=== PATIENT | female | born 1995 | race Caucasian/White ===

== ENCOUNTER 2020-03-06 17:58 | Outpatient (CLI) | payer OTHER ==
--- NOTE | 2020-03-07 15:16 | Ultrasound Report ---
PROCEDURE: OB Detailed Eval INDICATIONS: SUPERVISION NORMAL PRENANCY OUTSIDE/PRIOR DATING DATA: Last menstrual period (LMP): 10/09/2019. LMP-based estimated date of delivery (WANDA): 07/15/2020. First dating scan (date and location): 12/12/2019. Estimated date of delivery (WANDA) from first dating scan: 07/15/2020. TECHNIQUE: Real-time scanning was performed of the fetus, with image documentation and biometric measurements. COMPARISON: None. FINDINGS: First trimester ultrasound report 12/12/2019 with no images are available for comparison. General: A single living intrauterine gestation is present. Presentation: Vertex Placenta: Placental position is anterior fundal, without previa. Amniotic fluid index: 16.4 cm, 68th percentile for gestational age. Largest pocket 4.7 cm heart rate: 149 beats per minute. Maternal cervical canal: 5.1 cm long; normal length is 2.5 cm or more. biometrics: Biparietal diameter: 5.2 cm 21 weeks 6 days Head circumference: 19.4 cm 21 weeks 4 days Abdominal circumference: 17 cm 21 weeks 6 days Femur length: 3.8 cm 22 weeks 0 days Estimated gestational age from initial scan: 21 weeks 6 days. Composite gestational age from present scan: 21 weeks 2 days Estimated weight and percentile: 461 g, 78th percentile Measurement variability in biometric dating: +/- 10 days from 12-20 weeks gestation, +/- 2 weeks from 20-30 weeks gestation, +/- 3 weeks at 30 weeks gestation or later. Anatomic survey: Neuro: Ventricles are normal at less than 10 mm. Cisterna magna is normal at 3-11 mm. Cerebellum i s normal in size and morphology. Nuchal skin fold: Normal at less than 6 mm between 14 and 20 weeks gestational age. Face: Nose and lips, facial profile are normal. Spine: No evidence for spina bifida. Heart: 4-chambered heart is present, with normal ventricular outflow tracts. Diaphragm: Diaphragm is intact. Stomach: Left-sided stomach is present. Kidneys: No hydronephrosis. Normal is less than 5 mm in 2nd trimester, less than 7 mm in 3rd trimester. Cord: 3 vessel cord has orthotopic insertion. Bladder: Normal in size. Extremities: All 4 extremities are visualized. IMPRESSION: 1. Single live intrauterine with ultrasound gestational age today of 21 weeks 2 days compar ed to 21 weeks 6 days by initial ultrasound. Ultrasound WANDA is unchanged at 07/15/2020. 2. Anatomy is within normal limits. Reviewed by: Edith Cai MD on 03/07/2020 3:15 PM PDT Approved by: Edith Cai MD on 03/07/2020 3:15 PM PDT Station ID: [id number]
== END 2020-03-06 17:59 | disposition home or self-care (01) ==
LOC: DI 17:58
PROVIDERS: ATTEND Obstetrics & Gynecology
DX: Z34.80 Encounter for supervision of other normal pregnancy, unspecified trimester (principal)
CPT/HCPCS: 76811

== ENCOUNTER 2020-03-19 16:18 | Outpatient (CLI) | payer OTHER ==
[2020-03-19 17:21] VITALS: BP 135/67
--- NOTE | 2020-03-19 17:53 | PROVIDER PROGRESS NOTE ---
- HPI Chief Complaint: Other (Patient is a 24 yo at 23+1 wga here with new onset shakiness, headache, nausea while at work. Mildly elevated BP at [place]. Hx of pre- eclampsia. Not on ASA. BMI 35. Fam Hx DM and HTN. Endorses FM. Denies LOF/VB/CTX) Current : Current EDU 07/15/20 Gestation 23 Weeks and 1 Days 3 Para 1 Vital Signs Temperature 99.3 F 03/19/20 16:51 Heart Rate 90 03/19/20 16:51 Respiratory Rate 18 03/19/20 16:51 Blood Pressure 135/67 H 03/19/20 16:51 O2 Saturation 99 03/19/20 16:51 Temperature 99.3 F 03/19/20 16:51 Heart Rate 90 03/19/20 16:51 Respiratory Rate 18 03/19/20 16:51 Blood Pressure 135/67 H 03/19/20 16:51 O2 Saturation 99 03/19/20 16:51 - Exam SEE VS. BPs wnl GEN: NAD CV: RR RESP: nl effort ABD: gravid, S&NT/ND EXT: WWP NEURO: alert and oriented PSYCH: appropriate affect POC glucose 60 - Procedures OB Procedure Performed: Other (Dopplers show FHT in 150s; previable ) Service Date of procedure: 03/19/20 - Plan Plan: 24 yo at 23+1 wga with shakiness/nausea/headache/mildly elevated BP at home now with hypoglycemia - Normal BP in triage -Hx of preeclampsia -Also has BMI of 35 -Late for optimal window for ppx but provided ASA for pre-eclampsia PPX RX sent to [facility] pharmacy Reviewed etiology of hypoglycemia in and insulin resistance -Recommend early 1H GTT with the caveat that it should be repeated at 28 weeks if normal -Reviewed keeping low carb high protein/higher fat snacks available to maintain stable blood sugars FU with OB provider tomorrow Discharged to home
== END 2020-03-19 18:04 | disposition home or self-care (01) ==
LOC: WFO 16:18 → FBP 16:19 → WFO 18:04
PROVIDERS: ATTEND Obstetrics & Gynecology
DX: O26.892 Other specified pregnancy related conditions, second trimester (principal); E16.2 Hypoglycemia, unspecified; Z3A.23 23 weeks gestation of pregnancy
CPT/HCPCS: 99213

== ENCOUNTER 2020-03-20 10:38 | Outpatient (CLI) | payer OTHER ==
[2020-03-20 12:00] LABS: HGB - HEMOGLOBIN 10.9 g/dL (12.0-16.0); MEAN CORPUSCULAR HEMOGLOBIN 30.4 pg (27.0-31.0); MEAN CORPUSCULAR HGB CONC 34.3 g/dL (32.0-36.0); MEAN CORPUSCULAR VOLUME 88.8 fL (81.0-99.0); MEAN PLATELET VOLUME 9.9 fL (7.9-10.8); RED BLOOD COUNT 3.58 10^6/uL (4.20-5.40); WHITE BLOOD COUNT 9.4 x10^3/uL (4.8-10.8)
[2020-03-20 12:12] LABS: CREATININE,URINE 22.9 mg/dL
[2020-03-20 12:17] LABS: HB2 TOTAL 11.5 g/dL; HEMOGLOBIN A1C 0.38 g/dL; HEMOGLOBIN A1C % 5.2 % (4.6-6.2)
[2020-03-20 12:24] LABS: TOTAL PROTEIN,URINE TIMED < 6 mg/dL
[2020-03-20 12:28] LABS: ALBUMIN 3.4 g/dL (3.2-5.5); BILIRUBIN,DIRECT 0.1 mg/dL (0.1-0.5); BILIRUBIN,TOTAL 0.4 mg/dL (0.2-1.0); TOTAL PROTEIN 7.1 g/dL (6.7-8.2); URIC ACID 3.3 mg/dL (2.6-7.2)
== END 2020-03-20 10:39 | disposition home or self-care (01) ==
LOC: LAB 10:38
PROVIDERS: ATTEND Obstetrics & Gynecology
DX: Z34.80 Encounter for supervision of other normal pregnancy, unspecified trimester (principal)
CPT/HCPCS: 36415; 80076; 82570; 82950; 83036; 84156; 84550; 85027; 86850

== ENCOUNTER 2020-06-01 18:57 | Outpatient (CLI) | payer OTHER ==
--- NOTE | 2020-06-02 00:49 | Ultrasound Report ---
PROCEDURE: OB F/U or Repeat INDICATIONS: GESTATIONAL DABETES, EXCESSIVE GROWTH OUTSIDE/PRIOR DATING DATA: Last menstrual period (LMP): 10/09/2019. LMP-based estimated date of delivery (WANDA): 07/15/2020. First dating scan (date and location): 12/12/2019. Estimated date of delivery (WANDA) from first dating scan: 07/15/2020. TECHNIQUE: Real-time scanning was performed of the fetus, with image documentation and biometric measurements. COMPARISON: 03/06/2020. FINDINGS: General: A single living intrauterine gestation is present. Presentation: Cephalic Placenta: Placental position is anterior fundal, without previa. Amniotic fluid index: 11.4 cm, within normal limits for gestational age. Largest pocket 4.8 cm. heart rate: 161 beats per minute. Maternal cervical canal: 4.4 cm long; normal length is 2.5 cm or more. biometrics: Biparietal diameter: 8.6 cm, 35 weeks 1 day Head circumference: 31.3 cm, 35 weeks 1 day Abdominal circumference: 31.7 cm, 35 weeks 4 days Femur length: 6.9 cm, 35 weeks 4 days Estimated gestational age from initial scan: 33 weeks 5 days. Composite gestational age from present scan: 35 weeks 3 days Estimated weight and percentile: 2696 g corresponding to the 90th percentile Measurement variability in biometric dating: +/- 10 days from 12-20 weeks gestation, +/- 2 weeks from 20-30 weeks gestation, +/- 3 weeks at 30 weeks gestation or more. IMPRESSION: 1. Single living intrauterine redemonstrated in cephalic position. 2. Estimated weight at the 90th percentile suggestive of macrosomia. Reviewed by: Mainor Macdonald MD on 06/02/2020 12:47 AM PDT Approved by: Mainor Macdonald MD on 06/02/2020 12:47 AM PDT Station ID: [id number]
== END 2020-06-01 18:58 | disposition home or self-care (01) ==
LOC: DI 18:57
PROVIDERS: ATTEND Obstetrics & Gynecology
DX: O24.419 Gestational diabetes mellitus in pregnancy, unspecified control (principal); O36.63X0 Maternal care for excessive fetal growth, third trimester, not applicable or unspecified; Z3A.33 33 weeks gestation of pregnancy
CPT/HCPCS: 76816

== ENCOUNTER 2020-06-16 13:58 | Outpatient (CLI) | payer OTHER ==
[2020-06-16 15:24] VITALS: BP 100/51
--- NOTE | 2020-06-21 12:28 | PROCEDURE REPORT ---
- HPI Diagnosis/Indication for NST: Gestational Hypertension Current EDU 07/15/20 Gestation 35 Weeks and 6 Days 1 Para 0 Vital Signs Temperature 98.1 F 06/16/20 14:45 Heart Rate 86 06/16/20 14:45 Respiratory Rate 18 06/16/20 14:45 Blood Pressure 100/51 L 06/16/20 14:45 Temperature 98.1 F 06/16/20 14:45 Heart Rate 86 06/16/20 14:45 Respiratory Rate 18 06/16/20 14:45 Blood Pressure 100/51 L 06/16/20 14:45 O2 Saturation - NST Procedure NST Procedure Start Date 06/16/20 Start Time 14:05 Stop Time 14:44 Patient States Movement Yes EFM 135 mod devonte 15x15 accels no decels TOCO: irreg - Results and Plan Findings/Impression: 25 yo at 35+6 wga with complicated by GDM here for NST Cat I tracing Cont with twice weekly NST and weekly AMOL DC to home
== END 2020-06-16 14:45 | disposition home or self-care (01) ==
LOC: WFO 13:58 → FBP 13:59 → WFO 14:45
PROVIDERS: ATTEND Obstetrics & Gynecology
DX: O24.419 Gestational diabetes mellitus in pregnancy, unspecified control (principal); Z3A.35 35 weeks gestation of pregnancy
CPT/HCPCS: 59025

== ENCOUNTER 2020-06-19 15:04 | Outpatient (CLI) | payer OTHER ==
--- NOTE | 2020-06-20 09:28 | Ultrasound Report ---
PROCEDURE: OB Limited INDICATIONS: GESTATIONAL DIABETES OUTSIDE/PRIOR DATING DATA: Last menstrual period (LMP): 10/09/2019 LMP-based estimated date of delivery (WANDA): 07/15/2020. First dating scan (date and location): 12/12/2019. Estimated date of delivery (WANDA) from first dating scan: 07/15/2020. TECHNIQUE: Real-time scanning was performed of the fetus, with image documentation. Endovaginal scanning: Not performed COMPARISON: None. FINDINGS: A single living intrauterine gestation is present. Presentation: Vertex Placenta: Placental position is anterior/fundal, without previa. Amniotic fluid index: 11.6 cm, 28th percentile. Largest pocket measures 4.4 cm heart rate: 141 beats per minutes. Estimated gestational age from initial scan: 36 weeks 2 days. Normal appearance of the chest, stomach, kidneys and urinary bladder. IMPRESSION: Single living intrauterine fetus in vertex presentation. AMOL measures 11.6 cm Reviewed by: Shayan Cody MD on 06/20/2020 9:27 AM PDT Approved by: Shayan Cody MD on 06/20/2020 9:27 AM PDT Station ID: [id number]
== END 2020-06-19 15:05 | disposition home or self-care (01) ==
LOC: DI 15:04
PROVIDERS: ATTEND Obstetrics & Gynecology
DX: O24.419 Gestational diabetes mellitus in pregnancy, unspecified control (principal); Z3A.36 36 weeks gestation of pregnancy
CPT/HCPCS: 76815

== ENCOUNTER 2020-06-19 16:10 | Outpatient (CLI) | payer OTHER ==
[2020-06-19 16:52] VITALS: BP 108/59
--- NOTE | 2020-07-13 11:17 | PROCEDURE REPORT ---
- HPI Diagnosis/Indication for NST: Gestational Hypertension Current EDU 07/15/20 Gestation 36 Weeks and 2 Days 3 Para 1 Vital Signs Temperature 98.2 F 06/19/20 16:36 Heart Rate 88 06/19/20 16:36 Respiratory Rate 17 06/19/20 16:36 Blood Pressure 108/59 L 06/19/20 16:36 O2 Saturation 99 06/19/20 16:36 Temperature 98.2 F 06/19/20 16:36 Heart Rate 88 06/19/20 16:36 Respiratory Rate 17 06/19/20 16:36 Blood Pressure 108/59 L 06/19/20 16:36 O2 Saturation 99 06/19/20 16:36 - NST Procedure NST Procedure Start Date 06/19/20 Start Time 16:15 Stop Time 16:38 Vibroacoustic Stimulation Used No Patient States Movement Yes EFM 140 mod devonte 15x15 accels no decels TOCO: quiet - Results and Plan Findings/Impression: Patient is a a 25 yo at 36+2 wga with complicated by GDM and GHTN here for NST Cat I tracing Cont with twice weekly NST and weekly AMOL
== END 2020-06-19 16:45 | disposition home or self-care (01) ==
LOC: WFO 16:10 → FBP 16:13 → WFO 16:45
PROVIDERS: ATTEND Obstetrics & Gynecology
DX: O24.419 Gestational diabetes mellitus in pregnancy, unspecified control (principal); O13.3 Gestational [pregnancy-induced] hypertension without significant proteinuria, third trimester; Z3A.36 36 weeks gestation of pregnancy
CPT/HCPCS: 59025; 76815

== ENCOUNTER 2020-06-23 14:05 | Outpatient (CLI) | payer OTHER ==
[2020-06-23 14:17] VITALS: BP 129/80
--- NOTE | 2020-06-23 17:12 | PROCEDURE REPORT ---
- HPI Diagnosis/Indication for NST: Gestational Diabetes Current EDU 07/15/20 Gestation 36 Weeks and 6 Days 3 Para 1 Vital Signs Temperature 98.1 F 06/23/20 14:16 Heart Rate 105 H 06/23/20 14:16 Respiratory Rate 18 06/23/20 14:16 Blood Pressure 129/80 06/23/20 14:16 O2 Saturation 100 06/23/20 14:16 Temperature 98.1 F 06/23/20 14:16 Heart Rate 105 H 06/23/20 14:16 Respiratory Rate 18 06/23/20 14:16 Blood Pressure 129/80 06/23/20 14:16 O2 Saturation 100 06/23/20 14:16 - NST Procedure NST Procedure Start Date 06/23/20 Start Time 14:13 Stop Time 14:33 Vibroacoustic Stimulation Used No Patient States Movement Yes - Results and Plan Findings/Impression: Category 1 NST Uterine irritability present Continue ongoing surveillance
== END 2020-06-23 14:35 | disposition home or self-care (01) ==
LOC: WFO 14:05 → FBP 14:09 → WFO 14:35
PROVIDERS: ATTEND Obstetrics & Gynecology
DX: O24.419 Gestational diabetes mellitus in pregnancy, unspecified control (principal); Z3A.36 36 weeks gestation of pregnancy
CPT/HCPCS: 59025

== ENCOUNTER 2020-06-27 14:53 | Outpatient (CLI) | payer OTHER ==
[2020-06-27 17:06] VITALS: BP 130/79
--- NOTE | 2020-06-28 09:11 | PROCEDURE REPORT ---
- HPI Diagnosis/Indication for NST: Gestational Diabetes Current EDU 07/05/20 Gestation 38 Weeks and 6 Days 3 Para 1 Vital Signs Temperature 97.6 F L 06/27/20 15:11 Heart Rate 98 06/27/20 15:11 Respiratory Rate 16 06/27/20 15:11 Blood Pressure 127/81 H 06/27/20 15:11 Temperature 97.6 F L 06/27/20 15:11 Heart Rate 93 06/27/20 15:30 Respiratory Rate 16 06/27/20 15:11 Blood Pressure 130/79 06/27/20 17:00 O2 Saturation - NST Procedure NST Procedure Start Date 06/27/20 Start Time 15:07 Stop Time 17:12 Vibroacoustic Stimulation Used No Patient States Movement Yes - Results and Plan Findings/Impression: CAtegory 1 NST Manter neg PIH labs and P:C ratio normal Continue ongoing surveillance
== END 2020-06-27 17:20 | disposition home or self-care (01) ==
LOC: WFO 14:53 → FBP 14:55 → WFO 17:20
PROVIDERS: ATTEND Obstetrics & Gynecology
DX: O24.419 Gestational diabetes mellitus in pregnancy, unspecified control (principal); Z3A.38 38 weeks gestation of pregnancy
CPT/HCPCS: 59025

== ENCOUNTER 2020-06-30 13:51 | Outpatient (CLI) | payer OTHER ==
[2020-06-30 14:10] VITALS: BP 142/87
[2020-06-30 15:34] LABS: CREATININE,URINE 50.4 mg/dL
[2020-06-30 16:26] LABS: TOTAL PROTEIN,URINE TIMED < 6 mg/dL
--- NOTE | 2020-07-01 09:57 | PROCEDURE REPORT ---
- HPI Diagnosis/Indication for NST: Gestational Diabetes Current EDU 07/15/20 Gestation 37 Weeks and 6 Days 1 Para 0 Vital Signs Temperature 98.2 F 06/30/20 14:09 Heart Rate 91 06/30/20 14:09 Respiratory Rate 18 06/30/20 14:09 Blood Pressure 142/87 H 06/30/20 14:09 Temperature 98.2 F 06/30/20 14:09 Heart Rate 91 06/30/20 14:09 Respiratory Rate 18 06/30/20 14:09 Blood Pressure 142/87 H 06/30/20 14:09 O2 Saturation - NST Procedure NST Procedure Start Date 06/30/20 Start Time 14:00 Stop Time 14:55 Vibroacoustic Stimulation Used No Patient States Movement Yes - Results and Plan Findings/Impression: CAtegory 1 NST [place] rare contractions Continue surveillance
== END 2020-06-30 14:55 | disposition home or self-care (01) ==
LOC: WFO 13:51 → FBP 13:54 → WFO 14:55
PROVIDERS: ATTEND Obstetrics & Gynecology
DX: O24.419 Gestational diabetes mellitus in pregnancy, unspecified control (principal); Z3A.37 37 weeks gestation of pregnancy
CPT/HCPCS: 59025; 82570; 84156

== ENCOUNTER 2020-07-03 12:51 | Outpatient (CLI) | payer OTHER ==
[2020-07-03 13:52] VITALS: BP 136/84
--- NOTE | 2020-07-03 16:24 | Ultrasound Report ---
PROCEDURE: OB F/U or Repeat INDICATIONS: GESTATIONAL DIABETES OUTSIDE/PRIOR DATING DATA: Last menstrual period (LMP): 10/09/2019. LMP-based estimated date of delivery (WANDA): 07/15/2020. First dating scan (date and location): 12/12/2019. Estimated date of delivery (WANDA) from first dating scan: 07/15/2020. TECHNIQUE: Real-time scanning was performed of the fetus, with image documentation. Biophysical profile was obta ined. Endovaginal scanning: Not performed COMPARISON: Multiple prior studies, the most recent from 06/26/2020 FINDINGS: General: A single living intrauterine gestation is present. Presentation: Vertex Placenta: Placental position is anterior and fundal, without previa. Amniotic fluid index: 14.7 cm, 60 percentile for gestational age. Largest pocket is 5.95 cm heart rate: 149 beats per minute. Maternal cervical canal: Not seen, shadowed by the head Other: Biophysical profile score: Tone: 2 out of 2 Movement: 2 out of 2 Respiration: 2 out of 2 AMOL: 2 out of 2 IMPRESSION: 1. Single living intrauterine in vertex presentation. 2. Normal amniotic fluid volume. 3. Normal biophysical profile. Reviewed by: Sara Kwan MD on 07/03/2020 4:23 PM PDT Approved by: Sara Kwan MD on 07/03/2020 4:23 PM PDT Station ID: [id number]
== END 2020-07-03 14:40 | disposition home or self-care (01) ==
LOC: DI 12:51 → FBP 13:30 → DI 14:40
PROVIDERS: ATTEND Obstetrics & Gynecology
DX: O24.419 Gestational diabetes mellitus in pregnancy, unspecified control (principal)
CPT/HCPCS: 76816

== ENCOUNTER 2020-07-07 07:50 | Inpatient (IN) | payer OTHER ==
[2020-07-07] MEDS ORDERED: LACTATED RINGERS 1,000 ML IV ONE (08:29)
[2020-07-07] MEDS ORDERED: ONDANSETRON 4 MG/2 ML VIAL ONE (08:29)
[2020-07-07] MEDS ORDERED: METHYLERGONOVINE 0.2 MG/ML VIAL IM PRN (08:48)
[2020-07-07] MEDS ORDERED: OXYTOCIN 10 UNIT/ML VIAL IM PRN (08:48)
[2020-07-07] MEDS ORDERED: miSOPROStoL 200 MCG TABLET BC PRN (08:48)
[2020-07-07] MEDS ORDERED: LIDOCAINE-MPF 1% 30 ML VIAL ID PRN (08:48)
[2020-07-07] MEDS ORDERED: OXYTOCIN/SODIUM CHLORIDE 500 ML IV PRN (08:48)
[2020-07-07] MEDS ORDERED: TRANEXAMIC ACID 1,000 MG in SODIUM CHLORIDE 0.9% 100ML 100 ML IV PRN (08:48)
[2020-07-07] MEDS ORDERED: CARBOPROST TROMETHAMINE 250 MCG/ML AMP IM PRN (08:48)
[2020-07-07] MEDS ORDERED: SODIUM CHLORIDE FLUSH 0.9% 10 ML SYRINGE IVP PRN ×2 (08:48→10:50)
[2020-07-07] MEDS ORDERED: LACTATED RINGERS 1,000 ML IV SCH ×2 (09:00→14:00)
[2020-07-07] MEDS ORDERED: fentaNYL 100 MCG/2 ML VIAL ONE ×2 (10:13→10:37)
[2020-07-07] MEDS ORDERED: ROPIVACAINE 0.2% 200 MG/100 ML BAG EP ONE (10:37)
[2020-07-07] MEDS ORDERED: ROPIVACAINE 0.2% PF 20ML VIAL ONE (10:37)
[2020-07-07] MEDS ORDERED: LABETALOL 20 MG/4 ML SYRINGE IVP PRN (10:50)
[2020-07-07] MEDS ORDERED: METOCLOPRAMIDE 10 MG/2 ML VIAL IVP PRN ×2 (10:50→11:28)
[2020-07-07] MEDS ORDERED: ONDANSETRON 4 MG/2 ML VIAL IVP PRN ×2 (10:50→11:28)
[2020-07-07] MEDS ORDERED: fentaNYL 100 MCG/2 ML VIAL IVP PRN (10:50)
[2020-07-07] MEDS ORDERED: ROPIVACAINE 0.2% 200 MG/100 ML BAG EP PRN (10:50)
--- NOTE | 2020-07-07 11:08 | HISTORY & PHYSICAL EXAMINATION ---
Admit History - Visit Reason Visit Reason: Contractions - : 3 Parity: 1 Care: positive: [facility] Risk/History: positive: Gestational diabetes, induced HTN Complications This : positive: Gestational diabetes, induced HTN - Mother's Labs Mother's Blood Type: positive: A Mother's RH: positive: Positive GBS: positive: Group B Step Negative Rubella Status: positive: Immune - Other Maternal History Other Maternal History: Patient presents with contraction. No LOF or VB. Endorses FM. DATING: LMP: 10/09/2019 gives WANDA 07/15/2020 Ultrasound on 12/12/19 at 9w3d gives WANDA 07/13/2020; cwd GDM: Starting on metformin 500 mg po with dinner -US on 06/01/2020 EFW 2696, 90%ile -Getting twice weekly NST and weekly AMOL (06/01/2020 AMOL WNL; 06/19/20 AMOL WNL) -IOL at 39 wks A+/ Rubella immune. Serum integrated screen was negative. CF carrier: neg FAS was reported to be complete but was performed at an outside facility. We will review records. Glucola 138, failed 3HGTT-Diagnosed GDM Tdap complete GBS 06/25/2020-neg HSV: denies Mode of Delivery: Anticipate . Meds/Allgy - Home Medications Home Medications: Ambulatory Orders Medication Instructions Recorded Confirmed Aspirin [Aspirin EC] 81 mg PO DAILY 05/20/20 05/20/20 Metoclopramide HCl 5 mg PO Q6H PRN 05/20/20 05/20/20 Ondansetron [Ondansetron Odt] 4 mg PO Q6HR PRN 05/20/20 05/20/20 Pnv No.95/Ferrous Fum/Folic AC 1 each PO DAILY 05/20/20 05/20/20 [ Formula] Pyridoxine HCl (Vitamin B6) 1 tab PO DAILY 05/20/20 05/20/20 [Pyridoxine HCl] - Allergies Allergies/Adverse Reactions: Allergies Allergy/AdvReac Type Severity Reaction Status Date / Time No Known Drug Allergies Allergy Verified 05/20/20 16:25 Review of Systems - Other Findings Other Findings: As per HPI,otherwise remaining systems are negative. Physical - Abdominal Exam Vital Signs: 128/82 75 [phone]# Contraction Frequency (min/apart): Q4 min Contraction Intensity: positive: Moderate Uterine Resting Tone: positive: Soft - Monitoring Heart Rate Baseline: 135 mod devonte 15x15 accels no decels Strip Review: positive: Category I - Presentation Presentation: positive: Vertex - Vaginal Exam Membranes: positive: Membranes ruptured Dilation (in cm): 5 Effacement (%): 80 Station: positive: -2 Cervical Position: positive: Midposition - Speculum Exam Findings: positive: Gross leak - Other Notes Labor Progress Note/Additional Text: GEN: NAD HEENT: NCAT CV: RR RESP: nl effort ABD: gravid. S&NT/ND EXT: WWP PSYCH: appropriate affect NEURO: A&O, nl gait and coordination (prior to epidural) Patient ruptured spontaneously after epidural placed No significant change in SVE Plan for Labor - Plan For Labor Plan for Labor: LABOR: Expectant management -SROM with clear fluid -Augmentation as indicated FWB: vertex, GBS neg, Cat I tracing, well grown at 90%il -CEFM GDM: started metformin at last visit BG 106 this am Anticipate
--- NOTE | 2020-07-07 11:23 | ANESTHESIA ---
Pre-Anesthesia VS, & Labs - Diagnosis Spontaneous Labor - Procedure BRIANA Height: 5 ft 4 in Weight (kg): 103.4 kg Body Mass Index: 39.1 BMI Classification: Obese - NPO >8 hours - Is Patient ?: Yes, Not Applicable - Lab Results Lab results reviewed: Yes Home Medications and Allergies Active Medications Carboprost Tromethamine (Hemabate) 250 mcg IM Q15M PRN PRN Reason: Step 4: Hemorrhage protocol Stop: 07/12/20 08:49 Fentanyl (Fentanyl) 50 mcg IVP Q1H PRN PRN Reason: PAIN Oxytocin/Sodium Chloride (Pitocin/Sodium Chloride) 500 mls @ 999 mls/hr IV PRN PRN; Protocol PRN Reason: POST- HEMORR PREVENTION Stop: 07/12/20 08:49 Tranexamic Acid 1,000 mg/ (Sodium Chloride) 110 mls @ 660 mls/hr IV .ONCE PRN PRN Reason: EBL >1200mL and within 3hr Stop: 07/12/20 08:49 Lactated Ringer's (Lr) 1,000 mls @ 150 mls/hr IV .Q6H40M ROLANDA Labetalol HCl (Trandate Syringe) 20 mg IVP Q20M PRN PRN Reason: SBP >160 or DBP >110 Lidocaine HCl (Xylocaine-Mpf 1% Vial) 30 ml ID .ONCE PRN PRN Reason: PERINEAL REPAIR Stop: 07/12/20 08:49 Methylergonovine Maleate (Methergine Inj) 0.2 mg IM .ONCE PRN PRN Reason: Step 2: Hemorrhage protocol Stop: 07/12/20 08:49 Metoclopramide HCl (Reglan Inj) 10 mg IVP Q6H PRN PRN Reason: Nausea / Vomiting Misoprostol (Cytotec) 800 mcg BC .ONCE PRN PRN Reason: Step 3: Hemorrhage protocol Stop: 07/12/20 08:49 Ondansetron HCl (Zofran Inj) 4 mg IVP Q4H PRN PRN Reason: Nausea / Vomiting Oxytocin (Pitocin) 10 unit IM .ONCE PRN PRN Reason: Step one: If no IV access Stop: 07/12/20 08:49 Sodium Chloride (Normal Saline Flush 0.9%) 10 ml IVP PRN PRN PRN Reason: NEEDED PER PROVIDER ORDERS Sodium Chloride (Normal Saline Flush 0.9%) 10 ml IVP 0100,0900,1700 ROLANDA Sodium Chloride (Normal Saline Flush 0.9%) 10 ml IVP PRN PRN PRN Reason: NEEDED PER PROVIDER ORDERS Aspirin [Aspirin EC] 81 mg PO DAILY 05/20/20 Metoclopramide HCl 5 mg PO Q6H PRN 05/20/20 Ondansetron [Ondansetron Odt] 4 mg PO Q6HR PRN 05/20/20 Pnv No.95/Ferrous Fum/Folic AC [ Formula] 1 each PO DAILY 05/20/20 Pyridoxine HCl (Vitamin B6) [Pyridoxine HCl] 1 tab PO DAILY 05/20/20 Allergies/Adverse Reactions: Allergies Allergy/AdvReac Type Severity Reaction Status Date / Time No Known Drug Allergies Allergy Verified 05/20/20 16:25 Anes History & Medical History - Anesthetic History Anesthesia Complications: reports: No previous complications Family history of Anesthesia Complications: Denies Family history of Malignant Hyperthermia: Denies - Medical History Cardiovascular: reports: Hypertension, High cholesterol ( induced) Pulmonary: reports: None Gastrointestinal: reports: None Urinary: reports: None Neuro: reports: None Musculoskeletal: reports: None Endocrine/Autoimmune: reports: Type 2 diabetes (Gestationsl) Blood Disorders: reports: None Smoking Status: Never smoker Psychosocial: reports: No issues indicated History of Cancer?: No - Surgical History General: Other (Breast Augmentation/reduction to even out breast sizes) Gynecologic: Other (Had BRIANA for first with no problems) - Obstetrical History : 3 Parity: 1 Events: positive: Gestational diabetes, induced HTN Complications: positive: Gestational diabetes, induced HTN Exam General: Alert, Oriented x3, Cooperative, No acute distress Dental: WNL Mouth Opening: Greater than 4 Fingerbreadths Neck Mobility: Normal Mallampati classification: I Thyromental Distance: 4-6 cm Respiratory: Lungs clear Cardiovascular: Regular rate Plan Anesthesia Type: Epidural Consent for Procedure(s) Verified and Reviewed: Yes Code Status: Attempt Resuscitation ASA classification: 2-Mild systemic disease Is this case an emergency?: No (Discussed BRIANA and GA, permit signed)
[2020-07-07] MEDS ORDERED: diphenhydrAMINE INJ 50 MG/ML VIAL IVP PRN (11:28)
[2020-07-07] MEDS ORDERED: NALBUPHINE 10 MG/ML AMP IVP PRN (11:28)
[2020-07-07] MEDS ORDERED: ePHEDrine 50 MG/ML VIAL IVP PRN (11:28)
[2020-07-07] MEDS ORDERED: NALOXONE 0.4 MG/ML VIAL IVP PRN (11:28)
[2020-07-07] MEDS ORDERED: miSOPROStoL 200 MCG TABLET ONE (12:46)
[2020-07-07] MEDS ORDERED: LIDOCAINE-MPF 1% 30 ML VIAL ONE (12:46)
[2020-07-07] MEDS ORDERED: OXYTOCIN/SODIUM CHLORIDE 500 ML IV ONE (12:46)
[2020-07-07] MEDS ORDERED: HYDROCORTISONE 1% CREAM 28 GM TUBE PR PRN (13:51)
[2020-07-07] MEDS ORDERED: SIMETHICONE CHEW 80 MG TABLET PO PRN (13:51)
[2020-07-07] MEDS ORDERED: ONDANSETRON ODT 4 MG TABLET TL PRN (13:51)
--- NOTE | 2020-07-07 13:57 | DELIVERY NOTE ---
Delivery Note - Infant Delivery Method Infant Delivery Method: positive: Spontaneous vaginal delivery - Presentation Presentation: positive: Vertex - Nuchal Cord Nuchal Cord: positive: None - Anesthetic Anesthetic Type: - Amniotic Fluid Description Amniotic Fluid Description: positive: Clear - Episiotomy Type Episiotomy Type: positive: None - Laceration Laceration: positive: None - Delivery Outcome Delivery Outcome: positive: Livebirth - [place]: positive: Placed in direct skin contact with mother, Bulb syringe, Stimulated, Warmed, Brule used sex: positive: Female - Cord Cord: positive: 3 vessels - Placenta Placenta: positive: Intact, Expressed - Estimated Blood Loss Estimated Blood Loss (in cc): 200 - Post Delivery Events Post Delivery Events: positive: No post delivery events - Delivery Comments (Free Text/Narrative) Delivery Comments (Free Text/Narrative): STAGE I: Patient is a 25 yo at 38+6 wga wo presented in active labor. Initial SVE was 5/80/-3. Patient underwent spontaneous rupture of membranes at 10:50 notable for passage of clear fluid. Epidural placed for pain management. GBS negative; antibiotics were not indicated. Patient progressed to complete at 12:30; no augmentation indicated. Cat I tracing in Stage I labor. STAGE II: Patient pushed well for 20 minutes to deliver a viable female from vertex presentation at 13:20. Manual rotation from asynclitic position. delivered form SOFIE presentation with right shoulder anterior delivering without difficulty. Infant was delivered to maternal abdomen. Cord was clamped x2 and cut after pulsations were complete. Apgars were 9/9. weight pending. STAGE III: Placenta delivered with manual expression and gentle downward tension on the umbilical cord. It was examined and found to be intact. Perineum was examined and was without laceration. Total EBL 200 cc. Delivered was uncomplicated and well tolerated.
[2020-07-07 18:09] LABS: BASOPHILS % (AUTO) 0.3 %; EOSINOPHILS % (AUTO) 0.2 %; HGB - HEMOGLOBIN 12.3 g/dL (12.0-16.0); LYMPHOCYTES # (AUTO) 1.3 10^3/uL (1.5-3.5); LYMPHOCYTES % (AUTO) 10.9 %; MEAN CORPUSCULAR HEMOGLOBIN 29.4 pg (27.0-31.0); MEAN CORPUSCULAR HGB CONC 34.1 g/dL (32.0-36.0); MEAN CORPUSCULAR VOLUME 86.4 fL (81.0-99.0); MONOCYTES # (AUTO) 0.5 10^3/uL (0.0-1.0); MONOCYTES % (AUTO) 4.5 %; NEUTROPHILS # (AUTO) 9.7 10^3/uL (1.5-6.6); NEUTROPHILS % (AUTO) 82.3 %; PLT - PLATELET COUNT 271 10^3/uL (130-450); RED BLOOD COUNT 4.18 10^6/uL (4.20-5.40); RED CELL DISTRIBUTION WIDTH 13.5 % (12.0-15.0); WHITE BLOOD COUNT 11.8 x10^3/uL (4.8-10.8)
[2020-07-07] MEDS: ACETAMINOPHEN 500 MG TABLET PO SCH (18:39)
[2020-07-07] MEDS: IBUPROFEN 600 MG TABLET PO SCH ×2 (18:39→21:55)
[2020-07-07] MEDS: SODIUM CHLORIDE FLUSH 0.9% 10 ML SYRINGE IVP SCH ×2 (18:39→18:42)
[2020-07-07 18:50] LABS: ALBUMIN 3.6 g/dL (3.2-5.5); ALBUMIN/GLOBULIN RATIO 0.9 (1.0-2.2); BILIRUBIN,TOTAL 0.3 mg/dL (0.2-1.0); CALCIUM 9.8 mg/dL (8.5-10.3); CREATININE 0.6 mg/dL (0.4-1.0); TOTAL PROTEIN 7.6 g/dL (6.7-8.2)
[2020-07-07] MEDS: DOCUSATE SODIUM 100 MG CAPSULE PO PRN (21:55)
[2020-07-08] MEDS: ACETAMINOPHEN 500 MG TABLET PO SCH (08:46)
[2020-07-08] MEDS: DOCUSATE SODIUM 100 MG CAPSULE PO PRN (08:47)
[2020-07-08] MEDS: IBUPROFEN 600 MG TABLET PO SCH (08:47)
--- NOTE | 2020-07-08 13:02 | Discharge Plan ---
Discharge Plan Problem Reviewed?: Yes Disposition: 01 Home, Self Care Condition: Good Diet: Regular Activity Restrictions: Additional Comments (Nothing in the vagina for 6 weeks: No intercourse, tampons, douching Call for: -Fever greater than 100.5 - Pain that does not improve with pain medication -Heavy bleeding in which you are soaking a pad an hour for 2 hours in a row) Shower Restrictions: Yes (No tub baths or hot tubs for 4 weeks) Driving Restrictions: No Additional Instructions or Follow Up instructions: Ibuprofen 600 mg by mouth every 6 hours as needed for pain Acetaminophen 500-1000 mg by mouth every 8 hours as needed for pain Docusate 100-200 mg by mouth twice a day as needed for constipation We will need 2-hour oral glucose tolerance test at 6 weeks . No Smoking: If you smoke, Please STOP! Call for help. Follow-up with: Carmela Omer MD [Provider Admit Priv/Credential] -
--- NOTE | 2020-07-08 13:06 | DISCHARGE SUMMARY ---
Discharge Summary Admit Date: 07/07/20 Discharge Date: 07/08/20 Discharging Provider: Kan Condition at Discharge: Good Discharge Disposition: 01 Home, Self Care - DIAGNOSES Admission Diagnoses: Gestational diabetes IUP at 38+6 wga Labor Discharge Diagnoses with Status of Each Condition: Same and delivery of term gestation - HOSPITAL COURSE Hospital Course: STAGE I: Patient is a 25 yo at 38+6 wga wo presented in active labor. Initial SVE was 5/80/-3. Patient underwent spontaneous rupture of membranes at 10:50 notable for passage of clear fluid. Epidural placed for pain management. GBS negative; antibiotics were not indicated. Patient progressed to complete at 12:30; no augmentation indicated. Cat I tracing in Stage I labor. STAGE II: Patient pushed well for 20 minutes to deliver a viable female from vertex presentation at 13:20. Manual rotation from asynclitic position. delivered form SOFIE presentation with right shoulder anterior delivering without difficulty. Infant was delivered to maternal abdomen. Cord was clamped x2 and cut after pulsations were complete. Apgars were 9/9. weight pending. STAGE III: Placenta delivered with manual expression and gentle downward tension on the umbilical cord. It was examined and found to be intact. Perineum was examined and was without laceration. Total EBL 200 cc. Delivered was uncomplicated and well tolerated. Post course was uncomplicated. Rh positive/ Rubella immune. Meeting goals for discharge on PPD#1. Will need 2H OGTT at 6 weeks . - ALLERGIES Allergies/Adverse Reactions: Allergies Allergy/AdvReac Type Severity Reaction Status Date / Time No Known Drug Allergies Allergy Verified 05/20/20 16:25 - MEDICATIONS Home Medications: Ambulatory Orders Medication Instructions Recorded Confirmed Aspirin [Aspirin EC] 81 mg PO DAILY 05/20/20 05/20/20 Metoclopramide HCl 5 mg PO Q6H PRN 05/20/20 05/20/20 Ondansetron [Ondansetron Odt] 4 mg PO Q6HR PRN 05/20/20 05/20/20 Pnv No.95/Ferrous Fum/Folic AC 1 each PO DAILY 05/20/20 05/20/20 [ Formula] Pyridoxine HCl (Vitamin B6) 1 tab PO DAILY 05/20/20 05/20/20 [Pyridoxine HCl] - LABS Result Diagrams: 07/07/20 08:45 07/07/20 08:45 - FOLLOW UP Follow Up: Dr. Omer in one week - TIME SPENT Time Spent in Discharge (Minutes): 30
[2020-07-08 19:06] VITALS: BP 120/70
--- NOTE | 2020-07-08 19:11 | Labor Flowsheet ---
Labor Flowsheet Datetime Report Generated by CPN: 07/08/2020 19:11 Datetime: 07/08/2020 08:07 VITAL SIGNS NBP Sys/Jaki/Mean (mmHg): 119 : 73 : 85 Pulse: 72 COMMUNICATION LaborFlag: Labor Datetime: 07/07/2020 19:30 SpO2 (%): 99
== END 2020-07-08 17:30 | disposition home or self-care (01) | DRG 807 ==
LOC: WFO 07:50 → FBP 07:53 → WFO 10:49 → FBP 10:50
PROVIDERS: ADMIT Obstetrics & Gynecology; ATTEND Obstetrics & Gynecology
PROC: 10E0XZZ Delivery of Products of Conception, External Approach (ICD-10-PCS; principal; 2020-07-07)
DX: O24.425 Gestational diabetes mellitus in childbirth, controlled by oral hypoglycemic drugs (principal); Z37.0 Single live birth; O13.4 Gestational [pregnancy-induced] hypertension without significant proteinuria, complicating childbirth; O32.8XX0 Maternal care for other malpresentation of fetus, not applicable or unspecified; O32.2XX0 Maternal care for transverse and oblique lie, not applicable or unspecified; Z79.82 Long term (current) use of aspirin; Z3A.38 38 weeks gestation of pregnancy
CPT/HCPCS: 36415; 80053; 85025; 86850; 86900; 86901; A9270; J2795; J7120

== ENCOUNTER 2020-07-10 14:54 | Outpatient (CLI) | payer OTHER | END 2020-07-10 14:55 | disposition home or self-care (01) | LOC: WFO 14:54 | PROVIDERS: ATTEND Obstetrics & Gynecology | DX: Z53.20 Procedure and treatment not carried out because of patient's decision for unspecified reasons (principal) ==

== ENCOUNTER 2020-08-19 13:54 | Outpatient (CLI) | payer OTHER | END 2020-08-19 13:55 | disposition home or self-care (01) | LOC: LAB 13:54 | PROVIDERS: ATTEND Obstetrics & Gynecology | DX: O24.419 Gestational diabetes mellitus in pregnancy, unspecified control (principal) | CPT/HCPCS: 36415; 82951 ==